=== PATIENT | male | born 1975 | race Two or more races ===

== ENCOUNTER → 2025-08-12 | Outpatient (CLI) | payer OTHER ==
[2025-08-12 14:03] LABS: Urine Protein, UAD Negative (Negative)
[2025-08-12 14:17] LABS: Hematocrit 42.6 % (41.0-53.0); Hemoglobin 14.2 g/dL (13.5-17.5); Mean Corpuscular Hemoglobin 28.5 pg (28.0-32.0); Mean Corpuscular Volume 85.9 fL (80.0-100.0); Nucleated Red Blood Cells % 0.1 %
[2025-08-12 14:44] LABS: Alanine Aminotransferase 20 U/L (7-40); Albumin 4.3 g/dL (3.2-4.8); Alkaline Phosphatase 62 U/L (46-116); Anion Gap 11 (5-15); BUN/Creatinine Ratio 18.2 (10.0-20.0); Bilirubin, Total 0.6 mg/dL (0.2-1.0); Blood Urea Nitrogen 14 mg/dL (9-23); Calcium 9.1 mg/dL (8.7-10.4); Carbon Dioxide 26 mmol/L (20-31); Chloride 105 mmol/L (98-107); Glucose 92 mg/dL (74-106); Potassium 3.7 mmol/L (3.5-5.1); Sodium 142 mmol/L (136-145); Total Protein 7.0 g/dL (5.7-8.2); Uric Acid 4.4 mg/dL (3.7-9.2)
[2025-08-12 14:59] LABS: Triglycerides 47 mg/dL (< 150)
[2025-08-12 15:01] LABS: Cholesterol 169 mg/dL (< 200); HDL Cholesterol 47 mg/dL (40-59)
[2025-08-13 14:07] LABS: Anti-Nuclear Antibody Direct Negative (Negative)
== END | disposition home or self-care (01) ==
LOC: LAB 13:15
PROVIDERS: ATTEND Internal Medicine
DX: M54.6 Pain in thoracic spine (principal)
CPT/HCPCS: 36415; 80053; 80061; 81001; 84439; 84443; 84550; 85025; 85652; 86038; 86431